=== PATIENT | male | born 1990 | race Two or more races ===

== ENCOUNTER 2017-03-05 18:29 | Emergency (ER) | payer SELFPAY ==
[~2017-03-05] VITALS: Ht 167.6 cm; Wt 70.3 kg
--- NOTE | 2017-03-05 18:29 | NUR ---
BIB FAMILY FOR ANXIETY AND PANIC ATTACK. TACHYPNEIC AND TACHYCARDIC. PT DENIES HAVING PANIC ATTACKS BEFORE. PT PLACED IN BED MD Lily AT BEDSIDE FOR EVAL.
[2017-03-05] MEDS ORDERED: IV SET PRIMARY 1 EA INFUS.SET MC ONE (18:41)
[2017-03-05] MEDS ORDERED: IV NS 0.9% 1,000 ML ONE (18:41)
[2017-03-05] MEDS ORDERED: LORAZEPAM INJ 2 MG/ML VIAL ONE (18:41)
[2017-03-05 18:49] LABS: BASOPHILS # (AUTO) 0.2 /CMM (0.0-0.2); BASOPHILS % (AUTO) 2.4 % (0.0-2.0); EOSINOPHILS % (AUTO) 0.3 % (0.0-6.0); HEMATOCRIT 49 % (39-51); HEMOGLOBIN 16.1 g/dL (13.5-17.5); LYMPHOCYTES # (AUTO) 3.2 /CMM (0.8-4.8); LYMPHOCYTES % (AUTO) 35.5 % (20.0-44.0); MEAN CORPUSCULAR HEMOGLOBIN 29 PG (26.0-33.0); MEAN CORPUSCULAR HGB CONC 33 g/dl (31.0-36.0); MEAN CORPUSCULAR VOLUME 89 fL (80-96); MONOCYTES # (AUTO) 0.5 /CMM (0.1-1.30); MONOCYTES % (AUTO) 5.9 % (2.0-12.0); NEUTROPHILS # (AUTO) 5.2 /CMM (1.8-8.9); NEUTROPHILS % (AUTO) 55.9 % (43.0-81.0); PLATELET COUNT (AUTO) 305 /CMM (150-450); RDW COEFFICIENT OF VARIATION 12.3 (11.5-15.0); RED BLOOD CELL COUNT(AUTO) 5.54 MIL/uL (4.5-6.0); WHITE BLOOD COUNT (AUTO) 9.1 K/uL (4.3-11.0)
--- NOTE | 2017-03-05 18:50 | NUR ---
PT VERBALIZED RELIEF AFTER FIRST DOSE ATIVAN GIVEN,.
[2017-03-05 18:59] LABS: CALCIUM, SERUM 8.9 mg/dL (8.5-10.1); CARBON DIOXIDE 24 mmol/L (21-32); CHLORIDE 100 mmol/L (98-107); GLUCOSE 129 mg/dL (74-106); SODIUM SERUM 137 mmol/L (136-145); UREA NITROGEN, BLOOD 11 mg/dL (7-18)
[2017-03-05] MEDS ORDERED: LORAZEPAM INJ 2 MG/ML VIAL IV ONE (19:00)
[2017-03-05] MEDS ORDERED: IV NS 0.9% 1,000 ML BAG IV ONE (19:00)
[2017-03-05 19:08] LABS: TROPONIN I < 0.017 ng/mL (0.00-0.056)
[2017-03-05] MEDS ORDERED: POTASSIUM CHLORIDE 20 MEQ TAB.PRT.SR PO ONE ×2 (19:30→19:56)
--- NOTE | 2017-03-05 20:04 | NUR ---
IV removed. Catheter intact and site benign. Pressure and 4x4 applied to site. No bleeding noted. Patient discharged to home in stable condition. Written and verbal after care instructions given. Patient verbalizes understanding of instruction. ambulatory with a steady gait noted. pt aaox4 no acute distress noted, resp even and unlabored. advice pt not to drive or operate any machinery due to pt was given ativan. pt verbalize understanding. pt s/op at bedside to take pt home.
[2017-03-05 20:05] VITALS: BP 122/69
== END 2017-03-05 20:06 | disposition home or self-care (01) ==
LOC: ER 18:34
DX: E87.6 Hypokalemia (principal); F41.9 Anxiety disorder, unspecified
CPT/HCPCS: 36415; 71010; 80048; 84484; 85025; 93005; 96361; 96374; 99285; A4606; Z7610